=== PATIENT | female | born 1950 | race Two or more races ===

== ENCOUNTER 2019-12-02 12:06 | Inpatient (IN) | payer OTHER ==
[~2019-12-02] VITALS: Ht 160 cm; Wt 81.6 kg
[2019-12-15] MEDS ORDERED: METFORMIN HCL500 M3 PO (12:22)
[2019-12-15] MEDS ORDERED: PENTOXIFYLLINE400 MG PO (12:23)
[2019-12-15] MEDS ORDERED: CYMBALTA60 MG PO (12:23)
[2019-12-15] MEDS ORDERED: CLONAZEPAM2 MG PO (12:24)
[2019-12-15] MEDS ORDERED: FLECTOR1 EACH TD (12:25)
[2019-12-15] MEDS ORDERED: COZAAR100 MG PO (12:25)
[2019-12-22] MEDS ORDERED: DICLOFENAC SOD100 GM (08:26)
[2019-12-22] MEDS ORDERED: VITAMIN D32000 UNI1 PO (08:35)
[2019-12-22] MEDS ORDERED: VITAMIN C500 M5 PO (08:49)
[2019-12-22] MEDS ORDERED: [UNRECOGNIZED DRUG - OTHER] PO (08:59)
[2019-12-25] MEDS ORDERED: OXYC1TAB9 PO (12:28)
[2019-12-25] MEDS ORDERED: HYOSCYAMINE0.125 M1 SL (12:28)
== END 2019-12-25 13:44 | disposition home or self-care (01) | DRG 331 ==
LOC: SURH 12-22 06:00 → O/R 12-22 06:00 → SURG 12-22 09:00 → SURH 12-22 13:30
PROVIDERS: ADMIT Surgery
PROC: 0DBN4ZZ Excision of Sigmoid Colon, Percutaneous Endoscopic Approach (ICD-10-PCS; 2019-12-22)
PROC: 07BC4ZX Excision of Pelvis Lymphatic, Percutaneous Endoscopic Approach, Diagnostic (ICD-10-PCS; 2019-12-22)
PROC: 0DBP4ZZ Excision of Rectum, Percutaneous Endoscopic Approach (ICD-10-PCS; principal; 2019-12-22 11:00)
DX: D12.7 Benign neoplasm of rectosigmoid junction (principal)